=== PATIENT | female | born 1955 | race Caucasian/White ===

== ENCOUNTER 2016-12-14 23:45 | Emergency (ER) | payer MEDICAID, OTHER ==
[~2016-12-14] VITALS: Ht 167.6 cm; Wt 90.9 kg
[~2016-12-14 23:45] MED LIST: ASPI-556 PO; LISI-661 PO; METF500T4 PO; SIMV-261 PO
[2016-12-15 00:12] LABS: GLUCOSE,POINT OF CARE 181 MG/DL (70-110)
[2016-12-15] MEDS ORDERED: HYDROCODONE/ACETAMINOPHEN 5-325 MG TABLET PO ONE (01:45)
[2016-12-15] MEDS ORDERED: ACETAMINOPHEN 325 MG TABLET PO ONE (01:45)
[2016-12-15 02:13] VITALS: BP 141/91
== END 2016-12-15 04:10 | disposition home or self-care (01) ==
LOC: EMS 23:46
DX: S82.51XA Displaced fracture of medial malleolus of right tibia, initial encounter for closed fracture (principal); S30.0XXA Contusion of lower back and pelvis, initial encounter; S09.90XA Unspecified injury of head, initial encounter; E11.9 Type 2 diabetes mellitus without complications; I10 Essential (primary) hypertension; E78.00 Pure hypercholesterolemia, unspecified; F17.200 Nicotine dependence, unspecified, uncomplicated; Z79.82 Long term (current) use of aspirin; V03.90XA Pedestrian on foot injured in collision with car, pick-up truck or van, unspecified whether traffic or nontraffic accident, initial encounter; Y93.89 Activity, other specified; Y92.89 Other specified places as the place of occurrence of the external cause; Y99.8 Other external cause status
CPT/HCPCS: 29515; 70450; 72100; 82962; 99284

== ENCOUNTER 2017-04-25 12:23 | Emergency (ER) | payer OTHER ==
[~2017-04-25] VITALS: Ht 167.6 cm; Wt 8.6 kg
[2017-04-25 12:38] LABS: GLUCOSE COMMENT 1 Doctor Notified; GLUCOSE,POINT OF CARE 131 MG/DL (70-110)
[2017-04-25 13:21] LABS: BASOPHILS # (AUTO) 0.02 K/uL (0.00-0.20); BASOPHILS % (AUTO) 0.4 % (0.0-2.0); EOSINOPHILS # (AUTO) 0.02 K/uL (0.00-0.70); EOSINOPHILS % (AUTO) 0.41 % (1.0-6.0); HEMATOCRIT 42.8 % (36-46); HEMOGLOBIN 14.4 g/dL (12.0-16.0); LYMPHOCYTES # (AUTO) 0.9 K/uL (1.0-4.8); LYMPHOCYTES % (AUTO) 15.5 % (22.0-44.0); MEAN CORPUSCULAR HEMOGLOBIN 30.6 pg (26.0-34.0); MEAN CORPUSCULAR HGB CONC 33.6 G/dL (31.0-37.0); MEAN CORPUSCULAR VOLUME 91 fL (80-100); MONOCYTES # (AUTO) 0.3 K/uL (0.1-1.0); MONOCYTES % (AUTO) 5.4 % (2.0-9.0); NEUTROPHILS # (AUTO) 4.8 K/uL (1.8-7.7); NEUTROPHILS % (AUTO) 78.3 % (40.0-70.0); PLATELET COUNT (AUTO) 215 K/uL (150-450); WHITE BLOOD COUNT (AUTO) 6.1 K/uL (4.5-11.0)
[2017-04-25 13:37] VITALS: BP 147/94
[2017-04-25 13:39] LABS: ANION GAP 18 mmol/L (8-16); CALCIUM, TOTAL 9.3 mg/dL (8.8-10.5); CARBON DIOXIDE 20 mmol/L (22-29); CHLORIDE 101 mmol/L (98-107); CREATININE 0.76 mg/dL (0.60-1.30); GLOMERULAR FILTR. RATE CALC > 60 mL/min (>60); POTASSIUM 3.6 mmol/L (3.5-5.1); SODIUM SERUM 139 mmol/L (136-145); UREA NITROGEN, BLOOD 9 mg/dL (7-18)
[2017-04-25] MEDS ORDERED: LISINOPRIL 10 MG TABLET PO ONE (13:45)
== END 2017-04-25 14:13 | disposition home or self-care (01) ==
LOC: EMS 12:25
DX: E11.649 Type 2 diabetes mellitus with hypoglycemia without coma (principal); E78.00 Pure hypercholesterolemia, unspecified; I10 Essential (primary) hypertension; F17.210 Nicotine dependence, cigarettes, uncomplicated; Z02.89 Encounter for other administrative examinations; Z79.82 Long term (current) use of aspirin
CPT/HCPCS: 82962; 99284

== ENCOUNTER 2018-01-17 18:00 | Emergency (ER) | payer OTHER ==
[~2018-01-17] VITALS: Ht 167.6 cm; Wt 85.9 kg
[~2018-01-17 18:00] MED LIST changes: -METF500T4 PO; +METF500T6 PO
[2018-01-17 18:23] LABS: GLUCOSE,POINT OF CARE 131 MG/DL (70-110)
[2018-01-17] MEDS ORDERED: METHOCARBAMOL 500 MG TABLET PO ONE (19:45)
[2018-01-17] MEDS ORDERED: KETOROLAC TROMETHAMINE 10 MG TABLET PO ONE (19:45)
[2018-01-17 20:59] VITALS: BP 115/72
== END 2018-01-17 21:00 | disposition home or self-care (01) ==
LOC: EMS 18:01
DX: S39.012A Strain of muscle, fascia and tendon of lower back, initial encounter (principal); E11.9 Type 2 diabetes mellitus without complications; E78.00 Pure hypercholesterolemia, unspecified; I10 Essential (primary) hypertension; F17.210 Nicotine dependence, cigarettes, uncomplicated; F10.10 Alcohol abuse, uncomplicated; Z79.82 Long term (current) use of aspirin; Z79.899 Other long term (current) drug therapy; Z79.84 Long term (current) use of oral hypoglycemic drugs; X58.XXXA Exposure to other specified factors, initial encounter; Y93.89 Activity, other specified; Y92.89 Other specified places as the place of occurrence of the external cause; Y99.8 Other external cause status
CPT/HCPCS: 99283

== ENCOUNTER 2019-01-03 00:23 | Emergency (ER) | payer OTHER ==
[~2019-01-03] VITALS: Ht 167.6 cm; Wt 86.4 kg
[~2019-01-03 00:23] MED LIST changes: +METF-960 PO; -METF500T6 PO
[2019-01-03 02:24] LABS: EOSINOPHILS % (AUTO) 1.6 % (1.0-6.0); HEMATOCRIT 44.8 % (36-46); HEMOGLOBIN 15.1 g/dL (12.0-16.0); LYMPHOCYTES # (AUTO) 1.5 K/uL (1.0-4.8); LYMPHOCYTES % (AUTO) 30.5 % (22.0-44.0); MEAN CORPUSCULAR HEMOGLOBIN 31.4 pg (26.0-34.0); MEAN CORPUSCULAR HGB CONC 33.8 G/dL (31.0-37.0); MEAN CORPUSCULAR VOLUME 93 fL (80-100); MONOCYTES # (AUTO) 0.3 K/uL (0.1-1.0); MONOCYTES % (AUTO) 5.5 % (2.0-9.0); NEUTROPHILS % (AUTO) 61.4 % (40.0-70.0); PLATELET COUNT (AUTO) 213 K/uL (150-450); RED BLOOD CELL COUNT(AUTO) 4.82 MIL/uL (4.00-5.20); RED CELL DISTRIBUTION WIDTH 13.4 % (11.5-14.5)
[2019-01-03 02:51] LABS: ACETONE,BLOOD NEGATIVE (NEGATIVE); B-TYPE NATRIURETIC PEPTIDE 28 pg/mL (0-100)
[2019-01-03 02:53] LABS: ANION GAP 18 mmol/L (8-16); CALCIUM, TOTAL 9.8 mg/dL (8.8-10.5); CARBON DIOXIDE 21 mmol/L (22-29); CHLORIDE 99 mmol/L (98-107); CREATININE 0.88 mg/dL (0.60-1.30); GLOMERULAR FILTR. RATE CALC > 60 mL/min (>60); GLUCOSE,RANDOM 379 mg/dL (70-110); POTASSIUM 4.1 mmol/L (3.5-5.1); SODIUM SERUM 138 mmol/L (136-145); UREA NITROGEN, BLOOD 6 mg/dL (7-18)
[2019-01-03 02:58] LABS: ALANINE AMINOTRANSFERASE 86 U/L (12-78); ALBUMIN 4.2 g/dL (3.4-5.0); ALKALINE PHOSPHATASE 97 U/L (46-116); ASPARTATE AMINOTRANSFERASE 65 U/L (15-37); BILIRUBIN,TOTAL 0.6 mg/dL (0.1-1.0); LIPASE 122 U/L (73-393)
[2019-01-03 03:01] LABS: LACTIC ACID 3.3 mmol/L (0.4-2.0)
[2019-01-03] MEDS ORDERED: INSULIN REGULAR, HUMAN 100 UNITS/ML SQ ONE (03:30)
[2019-01-03 04:08] VITALS: BP 138/81
[2019-01-03 04:10] LABS: GLUCOSE,POINT OF CARE 347 MG/DL (70-110)
[2019-01-03 04:50] LABS: GLUCOSE,POINT OF CARE 318 MG/DL (70-110)
== END 2019-01-03 05:35 | disposition home or self-care (01) ==
LOC: EMS 00:23
DX: E11.65 Type 2 diabetes mellitus with hyperglycemia (principal); B37.3 Candidiasis of vulva and vagina; R79.89 Other specified abnormal findings of blood chemistry; N39.0 Urinary tract infection, site not specified; F10.129 Alcohol abuse with intoxication, unspecified; I10 Essential (primary) hypertension; E78.00 Pure hypercholesterolemia, unspecified; F17.210 Nicotine dependence, cigarettes, uncomplicated; Z79.82 Long term (current) use of aspirin; Z79.84 Long term (current) use of oral hypoglycemic drugs; Z79.899 Other long term (current) drug therapy; Y90.9 Presence of alcohol in blood, level not specified
CPT/HCPCS: 36415; 80053; 81002; 82009; 82962; 83605; 83690; 83880; 84484; 85025; 93005; 96372; 99284; 99406; J1815

== ENCOUNTER 2019-05-19 11:00 | Emergency (ER) | payer OTHER ==
[~2019-05-19] VITALS: Ht 167.6 cm; Wt 68.2 kg
[2019-05-19 11:20] VITALS: BP 127/69
[2019-05-19 11:31] LABS: GLUCOSE,POINT OF CARE 276 MG/DL (70-110)
== END 2019-05-19 12:30 | disposition left against medical advice (07) ==
LOC: EMS 11:02
DX: F41.9 Anxiety disorder, unspecified (principal); Z53.21 Procedure and treatment not carried out due to patient leaving prior to being seen by health care provider

== ENCOUNTER 2019-12-14 09:04 | Emergency (ER) | payer OTHER ==
[~2019-12-14] VITALS: Ht 172.7 cm; Wt 77.3 kg
[~2019-12-14 09:04] MED LIST changes: -METF-960 PO
[2019-12-14] MEDS ORDERED: ATOR10TA84 PO (09:09)
[2019-12-14] MEDS ORDERED: GLIP5 PO (09:09)
[2019-12-14] MEDS ORDERED: METF-960 PO (09:09)
[2019-12-14 10:05] VITALS: BP 137/88
== END 2019-12-14 10:06 | disposition home or self-care (01) ==
LOC: EMS 09:12
DX: M75.31 Calcific tendinitis of right shoulder (principal); E11.9 Type 2 diabetes mellitus without complications; E78.00 Pure hypercholesterolemia, unspecified; I10 Essential (primary) hypertension; F17.210 Nicotine dependence, cigarettes, uncomplicated; Z88.0 Allergy status to penicillin; W19.XXXA Unspecified fall, initial encounter; Y93.89 Activity, other specified; Y92.89 Other specified places as the place of occurrence of the external cause; Y99.8 Other external cause status

== ENCOUNTER 2020-01-20 21:28 | Emergency (ER) | payer OTHER ==
[~2020-01-20] VITALS: Ht 167.6 cm; Wt 71.8 kg
[~2020-01-20 21:28] MED LIST changes: -ASPI-556 PO; +ATOR10TA84 PO; +GLIP5 PO; -LISI-661 PO; +METF-960 PO; -SIMV-261 PO
[2020-01-21 00:41] LABS: GLUCOSE,POINT OF CARE 131 MG/DL (70-110)
[2020-01-21 01:50] LABS: ANION GAP 13 mmol/L (8-16); CALCIUM, TOTAL 8.9 mg/dL (8.8-10.5); CARBON DIOXIDE 25 mmol/L (22-29); CHLORIDE 105 mmol/L (98-107); GLOMERULAR FILTR. RATE CALC > 60 mL/min (>60); GLUCOSE,RANDOM 119 mg/dL (70-110); POTASSIUM 3.5 mmol/L (3.5-5.1); SODIUM SERUM 143 mmol/L (136-145); UREA NITROGEN, BLOOD 5 mg/dL (7-18)
[2020-01-21 01:55] LABS: BASOPHILS % (AUTO) 1.7 % (0.0-2.0); EOSINOPHILS % (AUTO) 2.8 % (1.0-6.0); HEMOGLOBIN 13.7 g/dL (12.0-16.0); LYMPHOCYTES # (AUTO) 1.8 K/uL (1.0-4.8); LYMPHOCYTES % (AUTO) 37.8 % (22.0-44.0); MEAN CORPUSCULAR HEMOGLOBIN 31.9 pg (26.0-34.0); MEAN CORPUSCULAR HGB CONC 33.5 G/dL (31.0-37.0); MEAN CORPUSCULAR VOLUME 95 fL (80-100); MONOCYTES # (AUTO) 0.4 K/uL (0.1-1.0); MONOCYTES % (AUTO) 7.6 % (2.0-9.0); NEUTROPHILS # (AUTO) 2.4 K/uL (1.8-7.7); NEUTROPHILS % (AUTO) 50.1 % (40.0-70.0); PLATELET COUNT (AUTO) 204 K/uL (150-450); RED CELL DISTRIBUTION WIDTH 13.1 % (11.5-14.5)
[2020-01-21 02:15] LABS: ALANINE AMINOTRANSFERASE 75 U/L (12-78); ALBUMIN 3.6 g/dL (3.4-5.0); ALKALINE PHOSPHATASE 86 U/L (46-116); ASPARTATE AMINOTRANSFERASE 67 U/L (15-37); BILIRUBIN,TOTAL 0.4 mg/dL (0.1-1.0); CREATINE KINASE, TOTAL ONLY 81 U/L (26-192); LIPASE 105 U/L (73-393); TOTAL PROTEIN, SERUM 7.5 g/dL (6.4-8.2)
[2020-01-21 03:50] VITALS: BP 111/73
[2020-01-21 04:20] LABS: APPEARANCE,URINE CLOUDY (CLEAR); BILIRUBIN,URINE NEGATIVE (NEGATIVE); GLUCOSE, URINE (UA) NEGATIVE (NEGATIVE); KETONES,URINE NEGATIVE (NEGATIVE); LEUKOCYTE ESTERASE ,URINE SMALL (NEGATIVE); NITRATE,URINE POSITIVE (NEGATIVE); OCCULT BLOOD,URINE NEGATIVE (NEGATIVE); PROTEIN,URINE NEGATIVE (NEGATIVE); UROBILINOGEN,URINE 0.2 mg/dL (<=1.0)
[2020-01-21 04:26] LABS: AMPHET/METH SCREEN,URINE NEGATIVE (NEGATIVE); BACTERIA,URINE Moderate /HPF (None Seen); BARBITURATE SCREEN, URINE NEGATIVE (NEGATIVE); BENZODIAZEPINES SCREEN,URINE NEGATIVE (NEGATIVE); CANNABINOID SCREEN,URINE NEGATIVE (NEGATIVE); COCAINE SCREEN,URINE NEGATIVE (NEGATIVE); METHADONE SCREEN, URINE NEGATIVE (NEGATIVE); OPIATE SCREEN,URINE NEGATIVE (NEGATIVE); RBC,URINE 0-2 /HPF (0-2); SQUAMOUS EPITHELIAL CELL,UR Few /LPF (None Seen)
[2020-01-21 04:41] LABS: PHENCYCLIDINE SCREEN,URINE NEGATIVE (NEGATIVE)
== END 2020-01-21 04:05 | disposition home or self-care (01) ==
LOC: EMS 21:28
DX: F10.239 Alcohol dependence with withdrawal, unspecified (principal); R63.0 Anorexia; R11.2 Nausea with vomiting, unspecified; R19.7 Diarrhea, unspecified; E11.9 Type 2 diabetes mellitus without complications; F17.210 Nicotine dependence, cigarettes, uncomplicated; E78.00 Pure hypercholesterolemia, unspecified; F12.90 Cannabis use, unspecified, uncomplicated; I10 Essential (primary) hypertension; Z68.25 Body mass index [BMI] 25.0-25.9, adult; Z88.0 Allergy status to penicillin; Z79.84 Long term (current) use of oral hypoglycemic drugs; Y90.7 Blood alcohol level of 200-239 mg/100 ml
CPT/HCPCS: 36415; 80053; 80307; 81001; 82550; 82962; 83690; 85025; 87077; 87086; 99285; G0480

== ENCOUNTER 2021-02-09 11:10 | Emergency (ER) | payer MEDICARE, OTHER ==
[~2021-02-09] VITALS: Ht 167.6 cm; Wt 72.7 kg
[2021-02-09 11:33] VITALS: BP 133/63
== END 2021-02-09 16:01 | disposition left against medical advice (07) ==
LOC: EMS 11:13
DX: R63.0 Anorexia (principal); Z53.21 Procedure and treatment not carried out due to patient leaving prior to being seen by health care provider

== ENCOUNTER 2021-07-28 08:29 | Emergency (ER) | payer MEDICARE, OTHER ==
[~2021-07-28] VITALS: Ht 167.6 cm; Wt 67.3 kg
[~2021-07-28 08:29] MED LIST changes: +METF-1211 PO; -METF-960 PO
[2021-07-28] MEDS ORDERED: HYDROCODONE/ACETAMINOPHEN 5-325 MG TABLET PO ONE (09:30)
[2021-07-28] MEDS ORDERED: CLINDAMYCIN HCL 150 MG CAPSULE PO ONE (13:30)
[2021-07-28 13:39] VITALS: BP 137/87
[2021-07-28] MEDS ORDERED: CLIN300C3 PO (13:40)
[2021-07-28] MEDS ORDERED: TRAM50TA4 PO (13:40)
== END 2021-07-28 14:06 | disposition home or self-care (01) ==
LOC: EMS 08:31
DX: S02.2XXA Fracture of nasal bones, initial encounter for closed fracture (principal); S02.42XA Fracture of alveolus of maxilla, initial encounter for closed fracture; I10 Essential (primary) hypertension; E11.9 Type 2 diabetes mellitus without complications; E78.00 Pure hypercholesterolemia, unspecified; Z87.891 Personal history of nicotine dependence; Z88.0 Allergy status to penicillin; W01.198A Fall on same level from slipping, tripping and stumbling with subsequent striking against other object, initial encounter; Y93.89 Activity, other specified; Y92.89 Other specified places as the place of occurrence of the external cause; Y99.8 Other external cause status
CPT/HCPCS: 70450; 70486; 72125; 99285

== ENCOUNTER 2022-06-05 15:39 | Emergency (ER) | payer MEDICARE, OTHER ==
[~2022-06-05] VITALS: Ht 167.6 cm; Wt 72.7 kg
[~2022-06-05 15:39] MED LIST changes: -ATOR10TA84 PO; +CLIN300C58 PO; -GLIP5 PO; -METF-1211 PO; +TRAM-559 PO
[2022-06-05 16:05] VITALS: BP 153/82
== END 2022-06-05 17:16 | disposition home or self-care (01) ==
LOC: EMS 15:49
DX: F10.10 Alcohol abuse, uncomplicated (principal); E11.9 Type 2 diabetes mellitus without complications; E78.00 Pure hypercholesterolemia, unspecified; I10 Essential (primary) hypertension; Z87.891 Personal history of nicotine dependence; Z88.0 Allergy status to penicillin; Z91.013 Allergy to seafood
CPT/HCPCS: 99283; Z7502

== ENCOUNTER 2024-01-05 12:56 | Emergency (ER) | payer OTHER ==
[~2024-01-05] VITALS: Ht 167.6 cm; Wt 57.7 kg
[~2024-01-05 12:56] MED LIST changes: -TRAM-559 PO; +TRAM50TA5 PO
[2024-01-05] MEDS: SODIUM CHLORIDE 0.9% 1,000 ML IV ONE (14:05)
[2024-01-05] MEDS: ONDANSETRON HCL 4 MG/2 ML VIAL IVP ONE (14:05)
[2024-01-05 14:10] LABS: BASOPHILS % (AUTO) 0.7 % (0.0-2.0); EOSINOPHILS % (AUTO) 1.2 % (1.0-6.0); HEMATOCRIT 40.6 % (36-46); HEMOGLOBIN 13.6 g/dL (12.0-16.0); LYMPHOCYTES # (AUTO) 1.3 K/uL (1.0-4.8); LYMPHOCYTES % (AUTO) 24.1 % (22.0-44.0); MEAN CORPUSCULAR HEMOGLOBIN 32.1 pg (26.0-34.0); MEAN CORPUSCULAR HGB CONC 33.4 G/dL (31.0-37.0); MEAN CORPUSCULAR VOLUME 96 fL (80-100); MONOCYTES # (AUTO) 0.7 K/uL (0.1-1.0); MONOCYTES % (AUTO) 12.1 % (2.0-9.0); NEUTROPHILS # (AUTO) 3.4 K/uL (1.8-7.7); NEUTROPHILS % (AUTO) 61.9 % (40.0-70.0); PLATELET COUNT (AUTO) 164 K/uL (150-450); RED BLOOD CELL COUNT(AUTO) 4.23 MIL/uL (4.00-5.20); RED CELL DISTRIBUTION WIDTH 13.4 % (11.5-14.5); WHITE BLOOD COUNT (AUTO) 5.5 K/uL (4.5-11.0)
[2024-01-05 14:29] LABS: ALANINE AMINOTRANSFERASE 104 U/L (12-78); ALBUMIN 3.8 g/dL (3.4-5.0); ALKALINE PHOSPHATASE 77 U/L (46-116); ANION GAP 14 mmol/L (8-16); ASPARTATE AMINOTRANSFERASE 132 U/L (15-37); BILIRUBIN,TOTAL 1.1 mg/dL (0.1-1.0); CALCIUM, TOTAL 9.2 mg/dL (8.8-10.5); CARBON DIOXIDE 27 mmol/L (22-29); CHLORIDE 93 mmol/L (98-107); CREATININE 0.72 mg/dL (0.60-1.30); GLOMERULAR FILTR. RATE CALC > 60 mL/min (>60); GLUCOSE,RANDOM 81 mg/dL (70-110); LIPASE 51 U/L (16-77); SODIUM SERUM 134 mmol/L (136-145); TOTAL PROTEIN, SERUM 8.3 g/dL (6.4-8.2); UREA NITROGEN, BLOOD 3 mg/dL (7-18)
[2024-01-05 14:33] LABS: TROPONIN I-HIGH SENSITIVITY 7 ng/L (<51)
[2024-01-05 14:36] LABS: POTASSIUM 2.8 mmol/L (3.5-5.1)
[2024-01-05] MEDS: POTASSIUM CHLORIDE 20 MEQ ER TABLET PO ONE (15:04)
[2024-01-05] MEDS: POTASSIUM CHL 10 MEQ/WATER 50 ML IV SCH (15:05)
[2024-01-05 16:42] VITALS: BP 128/74; PULSE 72; RESP 18; TEMP 97.8
== END 2024-01-05 18:37 | disposition left against medical advice (07) ==
LOC: EMS 12:56
DX: E87.6 Hypokalemia (principal); F10.10 Alcohol abuse, uncomplicated; R11.2 Nausea with vomiting, unspecified; E78.00 Pure hypercholesterolemia, unspecified; I10 Essential (primary) hypertension; Z87.891 Personal history of nicotine dependence; Z88.0 Allergy status to penicillin; Z91.013 Allergy to seafood
CPT/HCPCS: 99284; 96374; 96361; 80053; 83690; 83735; 84484; 85025; 36415; 93005; J2405; J3480; J7030

== ENCOUNTER 2025-01-18 17:10 | Emergency (ER) | payer OTHER ==
[~2025-01-18] VITALS: Ht 167.6 cm; Wt 68.2 kg
[2025-01-18 17:42] VITALS: TEMP 97.3
[2025-01-18 18:06] LABS: GLUCOMETER DEV NAME(LOC) ERT.7; GLUCOSE,POINT OF CARE 82 MG/DL (70-110)
[2025-01-18 18:12] LABS: PLATELET COUNT (AUTO) 366 K/uL (150-450); RED BLOOD CELL COUNT(AUTO) 4.13 MIL/uL (4.00-5.20); RED CELL DISTRIBUTION WIDTH 13.5 % (11.5-14.5); WHITE BLOOD COUNT (AUTO) 6.4 K/uL (4.5-11.0)
[2025-01-18 18:18] VITALS: BP 118/71; PULSE 68; RESP 17; O2SAT 97
[2025-01-18 18:19] LABS: CALCIUM, TOTAL 8.6 mg/dL (8.8-10.5); CREATININE 0.72 mg/dL (0.60-1.30); GLOMERULAR FILTR. RATE CALC > 60 mL/min (>60); GLUCOSE,RANDOM 86 mg/dL (70-110); SODIUM SERUM 140 mmol/L (136-145); UREA NITROGEN, BLOOD 5 mg/dL (7-18)
[2025-01-18] MEDS: POTASSIUM CHLORIDE 20 MEQ ER TABLET PO ONE (18:32)
== END 2025-01-18 18:53 | disposition home or self-care (01) ==
LOC: EMS 17:10
DX: R42 Dizziness and giddiness (principal); E87.6 Hypokalemia; F10.129 Alcohol abuse with intoxication, unspecified; E78.00 Pure hypercholesterolemia, unspecified; I10 Essential (primary) hypertension; Z87.891 Personal history of nicotine dependence; Z98.890 Other specified postprocedural states; Z88.0 Allergy status to penicillin; Z91.013 Allergy to seafood; Y90.9 Presence of alcohol in blood, level not specified
CPT/HCPCS: 80048; 82962; 85025; 99283

== ENCOUNTER 2025-03-23 17:56 | Emergency (ER) | payer OTHER ==
[~2025-03-23] VITALS: Ht 170.2 cm; Wt 72.7 kg
[2025-03-23 18:47] VITALS: BP 129/58; PULSE 94; RESP 16; TEMP 98.2; O2SAT 97
[2025-03-23 19:50] LABS: PLATELET COUNT (AUTO) 205 K/uL (150-450); RED BLOOD CELL COUNT(AUTO) 3.95 MIL/uL (4.00-5.20); RED CELL DISTRIBUTION WIDTH 14.9 % (11.5-14.5); WHITE BLOOD COUNT (AUTO) 4.5 K/uL (4.5-11.0)
[2025-03-23 20:04] LABS: CALCIUM, TOTAL 8.6 mg/dL (8.8-10.5); CREATININE 0.58 mg/dL (0.60-1.30); GLOMERULAR FILTR. RATE CALC > 60 mL/min (>60); GLUCOSE,RANDOM 113 mg/dL (70-110); SODIUM SERUM 139 mmol/L (136-145); UREA NITROGEN, BLOOD 10 mg/dL (7-18)
[2025-03-23 20:06] LABS: ASPARTATE AMINOTRANSFERASE 85.0 U/L (15-37); TOTAL PROTEIN, SERUM 7.5 g/dL (6.4-8.2)
[2025-03-23 20:14] LABS: TROPONIN I-HIGH SENSITIVITY 12 ng/L (<51)
== END 2025-03-23 20:41 | disposition home or self-care (01) ==
LOC: EMS 17:56
DX: F41.9 Anxiety disorder, unspecified (principal); F10.90 Alcohol use, unspecified, uncomplicated; M79.604 Pain in right leg; M79.605 Pain in left leg; E11.9 Type 2 diabetes mellitus without complications; E78.00 Pure hypercholesterolemia, unspecified; I10 Essential (primary) hypertension; Z88.0 Allergy status to penicillin; Z91.013 Allergy to seafood; Z87.891 Personal history of nicotine dependence; Z98.890 Other specified postprocedural states; Y90.6 Blood alcohol level of 120-199 mg/100 ml
CPT/HCPCS: 99285; 71045; 80048; 80076; 83880; 84484; 85025; 36415; 93005; G0480

== ENCOUNTER 2025-05-02 15:45 | Emergency (ER) | payer OTHER ==
[~2025-05-02] VITALS: Ht 170.2 cm; Wt 72.0 kg
[2025-05-02 16:04] VITALS: TEMP 98.2
[2025-05-02] MEDS: SODIUM CHLORIDE 0.9% 1,000 ML IV ONE (16:28)
[2025-05-02 16:39] LABS: PLATELET COUNT (AUTO) 199 K/uL (150-450); RED BLOOD CELL COUNT(AUTO) 3.86 MIL/uL (4.00-5.20); RED CELL DISTRIBUTION WIDTH 13.7 % (11.5-14.5); WHITE BLOOD COUNT (AUTO) 6.0 K/uL (4.5-11.0)
[2025-05-02 16:58] LABS: ASPARTATE AMINOTRANSFERASE 48.0 U/L (15-37); TOTAL PROTEIN, SERUM 7.2 g/dL (6.4-8.2)
[2025-05-02 17:00] LABS: ALCOHOL, BLOOD (SERUM) 249.0 mg/dL (0-10)
[2025-05-02 17:01] LABS: CALCIUM, TOTAL 8.8 mg/dL (8.8-10.5); CREATININE 0.87 mg/dL (0.60-1.30); GLOMERULAR FILTR. RATE CALC > 60 mL/min (>60); GLUCOSE,RANDOM 125 mg/dL (70-110); SODIUM SERUM 141 mmol/L (136-145); UREA NITROGEN, BLOOD 10 mg/dL (7-18)
[2025-05-02 17:09] LABS: TROPONIN I-HIGH SENSITIVITY 8 ng/L (<51)
[2025-05-02 17:38] VITALS: BP 137/79; PULSE 82; RESP 18; O2SAT 96
== END 2025-05-02 19:38 | disposition home or self-care (01) ==
LOC: EMS 16:33
DX: F10.129 Alcohol abuse with intoxication, unspecified (principal); E11.9 Type 2 diabetes mellitus without complications; E78.00 Pure hypercholesterolemia, unspecified; I10 Essential (primary) hypertension; Z87.891 Personal history of nicotine dependence; Z98.890 Other specified postprocedural states; Z88.0 Allergy status to penicillin; Z91.013 Allergy to seafood; Y90.8 Blood alcohol level of 240 mg/100 ml or more
CPT/HCPCS: 99284; 96360; 96361; 80048; 80076; 83690; 84484; 85025; 36415; 93005; G0480; J7030

== ENCOUNTER 2025-05-14 19:06 | Emergency (ER) | payer OTHER ==
[~2025-05-14] VITALS: Ht 167.6 cm; Wt 81.8 kg
[2025-05-14 21:38] LABS: PLATELET COUNT (AUTO) 221 K/uL (150-450); RED BLOOD CELL COUNT(AUTO) 4.51 MIL/uL (4.00-5.20); RED CELL DISTRIBUTION WIDTH 13.7 % (11.5-14.5); WHITE BLOOD COUNT (AUTO) 4.6 K/uL (4.5-11.0)
[2025-05-14 21:47] LABS: CALCIUM, TOTAL 9.3 mg/dL (8.8-10.5); CREATININE 0.69 mg/dL (0.60-1.30); GLOMERULAR FILTR. RATE CALC > 60 mL/min (>60); GLUCOSE,RANDOM 127 mg/dL (70-110); SODIUM SERUM 143 mmol/L (136-145); UREA NITROGEN, BLOOD 9 mg/dL (7-18)
[2025-05-14 21:57] LABS: TROPONIN I-HIGH SENSITIVITY 11 ng/L (<51)
[2025-05-14 22:04] LABS: APPEARANCE,URINE CLEAR (CLEAR); GLUCOSE, URINE (UA) NEGATIVE (NEGATIVE); LEUKOCYTE ESTERASE ,URINE NEGATIVE (NEGATIVE); NITRATE,URINE POSITIVE (NEGATIVE); OCCULT BLOOD,URINE NEGATIVE (NEGATIVE); SPECIFIC GRAVITIY, URINE 1.003 (1.003-1.030)
[2025-05-14 22:18] LABS: SQUAMOUS EPITHELIAL CELL,UR Rare /LPF (None Seen)
[2025-05-15 03:16] VITALS: BP 141/88; PULSE 75; RESP 16; TEMP 98; O2SAT 100
[2025-05-17] MEDS ORDERED: NITR100C4 PO (14:58)
== END 2025-05-15 05:51 | disposition home or self-care (01) ==
LOC: EMS 19:06
DX: F10.129 Alcohol abuse with intoxication, unspecified (principal); E11.9 Type 2 diabetes mellitus without complications; E78.00 Pure hypercholesterolemia, unspecified; I10 Essential (primary) hypertension; R06.02 Shortness of breath; R10.20 Pelvic and perineal pain unspecified side; Z91.013 Allergy to seafood; Z88.0 Allergy status to penicillin; Z79.899 Other long term (current) drug therapy; Y90.9 Presence of alcohol in blood, level not specified
CPT/HCPCS: 99284; 80048; 81001; 83880; 84484; 85025; 87077; 87086; 87186; 36415; 93005; G0480; 99285